=== PATIENT | male | born 1990 | race Caucasian/White ===

== ENCOUNTER 2018-07-12 07:33 | Observation (INO) | payer SELFPAY ==
[2018-07-12] VITALS (16 sets, daily range): BP systolic 98–130; BP diastolic 68–100
[~2018-07-12] VITALS: Ht 185.4 cm; Wt 69.9 kg
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
[2018-07-12 07:57] LABS: HEMATOCRIT 38 % (40-54); HEMOGLOBIN 13.8 G/DL (13.3-17.7); LYMPHOCYTES % (AUTO) 26 % (12-44); MEAN CORPUSCULAR HEMOGLOBIN 31 PG (25-34); MEAN CORPUSCULAR HGB CONC 37 G/DL (32-36); MEAN CORPUSCULAR VOLUME 85 FL (80-99); MEAN PLATELET VOLUME 9.9 FL (7.4-10.4); MONOCYTES % (AUTO) 12 % (0-12); NEUTROPHILS % (AUTO) 59 % (42-75); PLATELET COUNT 256 10^3/uL (130-400); RED CELL DISTRIBUTION WIDTH 12.1 % (10.0-14.5); WHITE BLOOD COUNT 9.7 10^3/uL (4.3-11.0)
[2018-07-12 07:58] LABS: BASOPHILS # (AUTO) 0.1 10^3/uL (0.0-0.1); BASOPHILS % (AUTO) 1 % (0-10); EOSINOPHILS # (AUTO) 0.2 10^3/uL (0.0-0.3); EOSINOPHILS % (AUTO) 2 % (0-10); LYMPHOCYTES # (AUTO) 2.5 X 10^3 (1.0-4.0); MONOCYTES # (AUTO) 1.2 X 10^3 (0.0-1.0); NEUTROPHILS # (AUTO) 5.7 X 10^3 (1.8-7.8)
[2018-07-12] MEDS ORDERED: TETANUS,DIPTH,PERTUSS P/F (BOOSTRIX) 0.5 ML VIAL IM ONE (08:15)
[2018-07-12] MEDS ORDERED: LORazepam INJ 2 MG/ML (ATIVAN) VIAL IVP ONE (08:15)
[2018-07-12 08:22] LABS: BILIRUBIN,TOTAL 2.8 MG/DL (0.1-1.0); BUN/CREATININE RATIO 21; CALCIUM 9.6 MG/DL (8.5-10.1); CHLORIDE 99 MMOL/L (98-107); CREATININE SERUM 0.92 MG/DL (0.60-1.30); GFR ESTIMATED > 60; GLUCOSE 93 MG/DL (70-105); POTASSIUM 3.2 MMOL/L (3.6-5.0); SODIUM 140 MMOL/L (135-145)
[2018-07-12 08:23] LABS: ACETAMINOPHEN < 10 UG/ML (10-30); ALANINE AMINOTRANSFERASE 24 U/L (0-55); ALBUMIN 4.9 GM/DL (3.2-4.5); SALICYLATE < 3.0 MG/DL (5.0-20.0); TOTAL PROTEIN 7.8 GM/DL (6.4-8.2)
[2018-07-12 08:39] LABS: ALKALINE PHOSPHATASE 68 U/L (40-136)
[2018-07-12] MEDS ORDERED: KCL 20 MEQ TAB (K-DUR) PO ONE (08:45)
[2018-07-12 09:03] LABS: CARBON DIOXIDE 21 MMOL/L (21-32)
[2018-07-12] MEDS ORDERED: LORazepam INJ 2 MG/ML (ATIVAN) VIAL IVP PRN (11:00)
--- NOTE | 2018-07-12 11:00 | History & Physical-Hospitalist ---
History of Present Illness HPI/Chief Complaint This is a 28-year-old white male who presented to the [facility] emergency room with suicidal ideation and very high on methamphetamine. The patient is very agitated and noncommunicative but moving all extremities with multiple excoriations and lacerations throughout his body. Source: patient, RN/MD Exam Limitations: clinical condition Date Seen 07/12/18 Time Seen by a Provider: 11:00 Attending Physician Anabella Crow MD PCP No,Local Physician Referring Physician Date of Admission July 12, 2018 at 09:08 Home Medications & Allergies Home Medications Reviewed patient Home Medication Reconciliation performed by pharmacy medication reconciliations master control technician and/or nursing. Patients Allergies have been reviewed. Allergies Allergies Coded Allergies No Known Drug Allergies (Unverified07/12/18) Past Uevckzg-Cpxkog-Jgitby Hx Past Med/Social Hx: Reviewed Nursing Past Med/Soc Hx Patient Social History Marrital Status: single Employed/Student: unemployed Alcohol Use: Denies Use Recreational Drug Use: Yes (methamphetamines) Drug of Choice: Meth, hx-marijuana Smoking Status: Current Everyday Smoker Type Used: Cigarettes 2nd Hand Smoke Exposure: No Recent Foreign Travel: No Contact w/other who traveled: No Recent Hopitalizations: No Recent Infectious Disease Expo: No Immunizations Up To Date Tetanus Booster (TDap): Unknown Seasonal Allergies Seasonal Allergies: No Past Medical History Psychosocial: Depression Family History No Pertinent Family Hx Review of Systems Constitutional: see HPI Physical Exam Physical Exam Vital Signs Vital Signs - First Documented 07/12/18 07:40 Temp 98.5 Pulse 79 Resp 20 B/P (MAP) 136/80 (98) Pulse Ox 96 O2 Delivery Room Air Capillary Refill : Less Than 3 Seconds Height, Weight, BMI Height: 6'1.00" Weight: 165lbs. oz. 74.676730xq; BMI Method:Stated General Appearance: Other (Agitated and disoriented noncommunicative) HEENT: Normal ENT Inspection Neck: Full Range of Motion, Normal Inspection, Non Tender, Supple Respiratory: Chest Non Tender, Lungs Clear, Normal Breath Sounds, No Accessory Muscle Use, No Respiratory Distress Cardiovascular: Regular Rate, Rhythm, No Gallop, No Murmur, Normal Peripheral Pulses Gastrointestinal: Normal Bowel Sounds, No Organomegaly, Non Tender, Soft Rectal: Deferred Back: Normal Inspection, No CVA Tenderness, No Vertebral Tenderness Extremity: Normal Capillary Refill, Normal Range of Motion, No Calf Tenderness , No Pedal Edema Neurologic/Psychiatric: Disoriented Skin: Tattoos/Piercings, Other (Multiple superficial lacerations on his wrists and excoriations) Results Results/Procedures Labs Laboratory Tests 07/12/18 07:45 Patient resulted labs reviewed. Assessment/Plan Admission Diagnosis Methamphetamine use Suicidal ideation History depression Poor social situation Plan for psychologist social consult for placement in the morning Admission Status: Observation ANABELLA CROW MD July 12, 2018 11:00
[2018-07-12] MEDS: NS IV 1000 ML 1,000 ML IV SCH (17:05)
[2018-07-12] MEDS: NICOTINE 21 MG (NICODERM) PATCH TD SCH (20:38)
[2018-07-13] VITALS (23 sets, daily range): BP systolic 96–144; BP diastolic 58–97
[2018-07-13] MEDS: NS IV 1000 ML 1,000 ML IV SCH ×3 (03:00→08:57)
[2018-07-13 04:02] LABS: BASOPHILS # (AUTO) 0.1 10^3/uL (0.0-0.1); BASOPHILS % (AUTO) 1 % (0-10); EOSINOPHILS # (AUTO) 0.4 10^3/uL (0.0-0.3); EOSINOPHILS % (AUTO) 6 % (0-10); HEMATOCRIT 35 % (40-54); HEMOGLOBIN 12.7 G/DL (13.3-17.7); LYMPHOCYTES # (AUTO) 2.3 X 10^3 (1.0-4.0); LYMPHOCYTES % (AUTO) 35 % (12-44); MEAN CORPUSCULAR HEMOGLOBIN 31 PG (25-34); MEAN CORPUSCULAR HGB CONC 36 G/DL (32-36); MEAN CORPUSCULAR VOLUME 87 FL (80-99); MEAN PLATELET VOLUME 10.3 FL (7.4-10.4); MONOCYTES # (AUTO) 0.6 X 10^3 (0.0-1.0); MONOCYTES % (AUTO) 10 % (0-12); NEUTROPHILS # (AUTO) 3.2 X 10^3 (1.8-7.8); NEUTROPHILS % (AUTO) 49 % (42-75); PLATELET COUNT 213 10^3/uL (130-400); RED CELL DISTRIBUTION WIDTH 12.5 % (10.0-14.5); WHITE BLOOD COUNT 6.6 10^3/uL (4.3-11.0)
[2018-07-13 04:33] LABS: ALANINE AMINOTRANSFERASE 22 U/L (0-55); ALBUMIN 3.5 GM/DL (3.2-4.5); ALKALINE PHOSPHATASE 57 U/L (40-136); BILIRUBIN,TOTAL 1.7 MG/DL (0.1-1.0); BUN/CREATININE RATIO 15; CALCIUM 8.9 MG/DL (8.5-10.1); CARBON DIOXIDE 24 MMOL/L (21-32); CHLORIDE 107 MMOL/L (98-107); CREATININE SERUM 0.79 MG/DL (0.60-1.30); GFR ESTIMATED > 60; GLUCOSE 115 MG/DL (70-105); MAGNESIUM 2.2 MG/DL (1.8-2.4); PHOSPHORUS 3.7 MG/DL (2.3-4.7); POTASSIUM 3.1 MMOL/L (3.6-5.0); SODIUM 139 MMOL/L (135-145); TOTAL PROTEIN 5.9 GM/DL (6.4-8.2)
[2018-07-13] MEDS: POTASSIUM CL 10MEQ/50ML IVPB 50 ML IV SCH ×5 (06:09→09:43)
[2018-07-13] MEDS: MAGNESIUM 1 GM/100 ML IVPB 100 ML IV SCH (06:10)
[2018-07-13] MEDS: KCL 20 MEQ TAB (K-DUR) PO SCH (06:10)
[2018-07-13] MEDS: VENlafaxine XR 75 MG (EFFEXOR XR) CAP PO SCH (08:37)
[2018-07-13] MEDS: NICOTINE 21 MG (NICODERM) PATCH TD SCH (08:37)
--- NOTE | 2018-07-13 09:27 | NUR ---
SPOKE WITH THE PATIENT ABOUT HIS MEDICATIONS. HE STATES HE USED TO TAKE MEDS BUT HAS NOT TAKEN THEM FOR SOME TIME. I SET THE PROFILE TO NO MEDS AT THIS TIME. THE LIST SCANNED INTO HIS CHART HAS XANAX 0.5MG, ACCORDING TO [facility] THAT HAS NOT BEEN FILLED SINCE 07-15-17 #90. ALSO LISTED IS EFFEXOR XR 75MG, EFFEXOR XR 37.5MG, NAPROXEN 500MG, AND TYLENOL 500MG. HE STATES HE IS NOT CURRENTLY TAKING ANY PRESCRIPTION OR OTC MEDS.
--- NOTE | 2018-07-13 13:01 | NUR ---
CM/SS spoke with the patient in regards to the SS consult. Patient discussed that he uses methamphetamine regularly, as often as he can. He stated that he has never been in MH or A/D counseling. He stated that he would be willing to go inpatient psych and feels it would benefit him. Referral sent to [facility]. [facility] unit is full.
--- NOTE | 2018-07-13 15:13 | NUR ---
CM/SS [facility] called back to say they had a male bed but filled it from their ER, they have to fill from there first. [facility] will call if have another opening. Referral sent to Janie Vance and Mariah Hewitt.
--- NOTE | 2018-07-13 17:26 | Progress Note-Hospitalist ---
Progress Note Progress Notes/Assess & Plan Date Seen 07/13/18 Time Seen by Provider: 17:26 Assessment & Plan The patient is a 28-year-old white male admitted after he presented to the emergency room in an extremely agitated state on methamphetamines. IGNACIA BISWAS MD July 13, 2018 17:26
[2018-07-14] VITALS (12 sets, daily range): BP systolic 101–147; BP diastolic 67–129
[2018-07-14 03:50] LABS: BASOPHILS # (AUTO) 0.1 10^3/uL (0.0-0.1); BASOPHILS % (AUTO) 1 % (0-10); EOSINOPHILS # (AUTO) 0.5 10^3/uL (0.0-0.3); EOSINOPHILS % (AUTO) 7 % (0-10); HEMATOCRIT 37 % (40-54); HEMOGLOBIN 12.7 G/DL (13.3-17.7); LYMPHOCYTES # (AUTO) 2.8 X 10^3 (1.0-4.0); LYMPHOCYTES % (AUTO) 45 % (12-44); MEAN CORPUSCULAR HEMOGLOBIN 31 PG (25-34); MEAN CORPUSCULAR HGB CONC 35 G/DL (32-36); MEAN CORPUSCULAR VOLUME 88 FL (80-99); MEAN PLATELET VOLUME 9.9 FL (7.4-10.4); MONOCYTES # (AUTO) 0.7 X 10^3 (0.0-1.0); MONOCYTES % (AUTO) 11 % (0-12); NEUTROPHILS # (AUTO) 2.3 X 10^3 (1.8-7.8); NEUTROPHILS % (AUTO) 36 % (42-75); PLATELET COUNT 223 10^3/uL (130-400); RED CELL DISTRIBUTION WIDTH 12.6 % (10.0-14.5); WHITE BLOOD COUNT 6.3 10^3/uL (4.3-11.0)
[2018-07-14 04:07] LABS: BUN/CREATININE RATIO 11; CALCIUM 9.1 MG/DL (8.5-10.1); CARBON DIOXIDE 23 MMOL/L (21-32); CHLORIDE 107 MMOL/L (98-107); CREATININE SERUM 0.71 MG/DL (0.60-1.30); GFR ESTIMATED > 60; GLUCOSE 96 MG/DL (70-105); MAGNESIUM 2.2 MG/DL (1.8-2.4); PHOSPHORUS 3.4 MG/DL (2.3-4.7); POTASSIUM 3.7 MMOL/L (3.6-5.0); SODIUM 140 MMOL/L (135-145)
[2018-07-14] MEDS: MAGNESIUM 1 GM/100 ML IVPB 100 ML IV SCH (06:22)
[2018-07-14] MEDS: KCL 20 MEQ TAB (K-DUR) PO SCH (06:22)
[2018-07-14] MEDS: POTASSIUM CL 10MEQ/50ML IVPB 50 ML IV SCH (06:22)
[2018-07-14 07:17] LABS: HEPATITIS C ANTIBODY C Non-Reactive (Non-Reactive)
--- NOTE | 2018-07-14 08:28 | NUR ---
CM/SS as inpatient beds were not available and patient has denied any thought of SI, will have [facility] evaluate this day to determine if an outpatient plan will be appropriate for this patient.
[2018-07-14] MEDS: VENlafaxine XR 75 MG (EFFEXOR XR) CAP PO SCH (09:00)
[2018-07-14] MEDS: NICOTINE 21 MG (NICODERM) PATCH TD SCH (09:00)
--- NOTE | 2018-07-14 11:12 | NUR ---
UNIQUE/TANNER Gray, evaluated and is in agreeable the outpatient plan is appropriate for the patient. Patient resides in [facility] and [facility] there is insistent that they have a copy of his ID and income before will schedule alcohol / drug assessment. Provided the patient with information on [facility] with phone number and address, encouraged him to stop there on the way home with the necessary information and schedule an assessment. Inquired about [facility] in [facility], they do a/d assessments and counseling but only with insurance or self pay.
--- NOTE | 2018-07-14 11:45 | Progress Note-Hospitalist ---
Progress Note Progress Notes/Assess & Plan Date Seen 07/14/18 Time Seen by Provider: 11:43 Assessment & Plan The patient was seen by José Manuel reddy from mental health this morning. Arrangements have been made for him to seek outpatient counseling and support. He will therefore be discharged. He remains largely reticent. Physical exam: Lungs are clear to auscultation. CV is regular without murmur. Again noted were multiple pickers eschars on the arms. Impression: Addictive personality. 2.abuse of methamphetamine and alcohol. See discharge sequence for medications and routines. IGNACIA BISWAS MD July 14, 2018 11:45
--- NOTE | 2018-07-14 11:47 | Discharge Inst-Simple/Standard ---
Discharge Inst-Standard Patient Instructions/Follow Up Plan of Care/Instructions/FU: Make arrangements for outpatient appointments at the agencies given to you by Mr. PEAK Activity as Tolerated: Yes Discharge Diet: Regular Diet IGNACIA BISWAS MD July 14, 2018 11:47
== END 2018-07-14 13:00 | disposition home or self-care (01) ==
LOC: EDUNIT# 07:33 → ER FS 07:36 → ICU 09:08
PROVIDERS: ADMIT Internal Medicine; ATTEND Internal Medicine
DX: R45.851 Suicidal ideations (principal); S71.112A Laceration without foreign body, left thigh, initial encounter; S61.512A Laceration without foreign body of left wrist, initial encounter; S61.511A Laceration without foreign body of right wrist, initial encounter; F10.10 Alcohol abuse, uncomplicated; F15.10 Other stimulant abuse, uncomplicated; F42.4 Excoriation (skin-picking) disorder; F32.9 Major depressive disorder, single episode, unspecified; G47.00 Insomnia, unspecified; E87.6 Hypokalemia; F17.210 Nicotine dependence, cigarettes, uncomplicated; X78.1XXA Intentional self-harm by knife, initial encounter; Z23 Encounter for immunization
CPT/HCPCS: 12031; 36415; 80048; 80053; 80320; 80329; 83735; 84100; 85025; 86703; 86803; 87081; 90471; 90715; 93005; 93041; 96374; G0378

== ENCOUNTER 2019-01-28 22:03 | Emergency (ER) | payer SELFPAY ==
[~2019-01-28] VITALS: Ht 187.9 cm; Wt 82.9 kg
[2019-01-28] MEDS ORDERED: RT-ALBUTEROL/IPRATROPIUM 3 ML (DUONEB) VIAL INH ONE (22:30)
--- NOTE | 2019-01-28 23:09 | ED Cough/URI ---
General Chief Complaint: Respiratory Problems Stated Complaint: SOB,COUGH Nursing Triage Note: Patient states that he has had a cough for the last 2 weeks that has progressively gotten worse. Patient states he is now having shortness of breath. Patient also complains of congestion. Sepsis Screen: No Definite Risk Source: patient Exam Limitations: no limitations History of Present Illness Date Seen by Provider: Jan 28, 2019 Time Seen by Provider: 22:14 Initial Comments Here with cough and congestion over the last 2 weeks. States it's worse today. States he feels short of breath and appears to be in some distress with normal vital signs. Complains of some tingling in his head. Does have runny nose. He is with the family who has had multiple people with multiple visits to the ER this week all with similar complaints. Timing/Duration: other (2 weeks) Severity/Quality: moderate, dry cough Prior Episodes/Possible Cause: occasional episodes Modifying Factors: Worse With Coughing; Improves With Rest Associated Symptoms: cough, nasal congestion, nasal drainage, shortness of breath Allergies and Home Medications Allergies Coded Allergies: No Known Drug Allergies (Unverified , 07/12/18) Home Medications No Active Prescriptions or Reported Meds Patient Home Medication List Home Medication List Reviewed: Yes Review of Systems Review of Systems Constitutional: see HPI, chills; No fever EENTM: nose congestion, throat pain Respiratory: cough, short of breath Cardiovascular: no symptoms reported Gastrointestinal: no symptoms reported Genitourinary: no symptoms reported Musculoskeletal: No joint pain; muscle pain Skin: no symptoms reported Psychiatric/Neurological: No Symptoms Reported Past Lvfzfsb-Tnkcmi-Pqqshg Hx Past Med/Social Hx: Reviewed Nursing Past Med/Soc Hx Patient Social History Alcohol Use: Denies Use Recreational Drug Use: No Drug of Choice: Meth, hx-marijuana Smoking Status: Current Everyday Smoker Type Used: Electronic/Vapor 2nd Hand Smoke Exposure: No Recent Foreign Travel: No Contact w/Someone Who Travel: No Recent Infectious Disease Expo: No Recent Hopitalizations: No Physical Abuse: No Sexual Abuse: No Mistreated: No Fear: No Immunizations Up To Date Tetanus Booster (TDap): Unknown Seasonal Allergies Seasonal Allergies: No Past Medical History Surgeries: No Respiratory: No Cardiac: No Neurological: No Genitourinary: No Gastrointestinal: No Musculoskeletal: No Endocrine: No HEENT: No Cancer: No Psychosocial: Yes (sustance abuse) Depression Integumentary: No Family Medical History Reviewed Nursing Family Hx No Pertinent Family Hx Physical Exam Vital Signs - First Documented 01/28/19 22:14 Temp 37.1 Pulse 105 Resp 24 B/P (MAP) 127/71 (89) Pulse Ox 99 O2 Delivery Room Air Capillary Refill : Less Than 3 Seconds Height: 6'1.00" Weight: 154lbs. 0.0oz. 69.366151ht; 23.00 BMI Method:Stated General Appearance: WD/WN, mild distress (anxious) HEENT: PERRL/EOMI, TMs normal, pharyngeal erythema Neck: full range of motion, supple Respiratory: no accessory muscle use, wheezing ( there are a few trace expiratory wheezes), expiration Cardiovascular: regular rate, rhythm, no murmur Gastrointestinal: non tender, soft Neurologic/Psychiatric: alert, oriented x 3 Skin: normal color, warm/dry Progress/Results/Core Measures Suspected Sepsis Recent Fever Within 48 Hours: No Infection Criteria Present: None New/Unexplained Altered Menta: No Sepsis Screen: No Definite Risk SIRS Temperature: Pulse: 105 Respiratory Rate: 24 Blood Pressure 127 /71 Mean: 89 Results/Orders My Orders Orders - IVONNE FERGUSON MD Albuterol/Ipra Inhalation Soln (Duoneb I (01/28/19 22:30) Chest Pa/Lat (2 View) (01/28/19 22:24) Svn Small Volume Nebulizer (01/28/19 22:24) Dexamethasone Injection (Decadron Inject (01/28/19 23:15) Medications Given in ED Current Medications Medications Dose Ordered Sig/Eber Route Start Time Stop Time Status Last Admin Dose Admin Albuterol/ Ipratropium 3 ml ONCE ONCE INH 01/28/19 22:30 01/28/19 22:31 DC 01/28/19 22:34 3 ML Vital Signs/I&O 01/28/19 22:14 Temp 37.1 Pulse 105 Resp 24 B/P (MAP) 127/71 (89) Pulse Ox 99 O2 Delivery Room Air Capillary Refill : Less Than 3 Seconds Blood Pressure Mean: 89 POS Progress Note : Progress Note Seen and evaluated. Patient seems to be in distress related to coughing. Is breathing fast with O2 sat 100% on room air. We will able to encourage him to slow respirations. He does have a few wheezes so we will give DuoNeb and get two-view chest x-ray. 04/12/06: X-rays negative. Overall much improved and he is joking around. Decadron 10 mg IM for pharyngitis and bronchitis. Discharged home with return precautions. Patient verbalize understanding of instructions and agreement with plan. Diagnostic Imaging Diagonstic Imaging: Xray Plain Films/CT/US/NM/MRI: chest Comments No acute findings Reviewed: Reviewed by Me Departure Impression Primary Impression: Bronchitis Additional Impression: Viral upper respiratory tract infection Disposition: HOME, SELF-CARE Condition: Improved Departure-Patient Inst. Decision time for Depature: 23:08 Referrals: NO,LOCAL PHYSICIAN (PCP/Family) Primary Care Physician Patient Instructions: Viral Upper Respiratory Infection, Adult (DC), Acute Bronchitis, Adult (DC) Add. Discharge Instructions: All discharge instructions reviewed with patient and/or family. Voiced understanding. You may take ibuprofen 600 mg every 8 hours as needed for pain. You may also take Tylenol/acetaminophen 1000 mg every 8 hours as needed for pain. Drink plent y of fluids. Follow-up with your DrKristie in a few days for recheck. Return for worse pain, fever, vomiting, weakness, breathing problems or other concerns as needed. You should consider stopping vaping. Scripts No Active Prescriptions or Reported Meds IVONNE FERGUSON MD Jan 28, 2019 23:09 POS
[2019-01-28 23:12] VITALS: BP 127/71
[2019-01-28] MEDS ORDERED: DEXAMETHASONE 10 MG/ML (DECADRON) 1 ML VIAL IM ONE (23:15)
--- NOTE | 2019-01-29 07:26 | Diagnostic Imaging Report ---
INDICATION: Cough. PA and lateral views were obtained. FINDINGS: The heart size, mediastinal configuration, and pulmonary vascularity are within normal limits. There is no pleural effusion, pneumothorax, or pneumonia. The osseous structures are unremarkable. IMPRESSION: No acute cardiopulmonary abnormality. Dictated by: Dictated on workstation # [id number]
== END 2019-01-28 23:12 | disposition home or self-care (01) ==
LOC: EDUNIT# 22:03 → ER FS 22:05
DX: J40 Bronchitis, not specified as acute or chronic (principal); J06.9 Acute upper respiratory infection, unspecified; F32.9 Major depressive disorder, single episode, unspecified; F17.290 Nicotine dependence, other tobacco product, uncomplicated
CPT/HCPCS: 71046; 96372